=== PATIENT | male | born 1975 | race Caucasian/White ===

== ENCOUNTER → 2019-05-14 08:47 | Outpatient (BNVA) | payer MEDICARE, MEDICAID, SELFPAY | PROVIDERS: Family Provider Physician Assistant Medical; PCP Physician Assistant Medical; Visit Provider Nurse Practitioner | DX: M51.36 Other intervertebral disc degeneration, lumbar region (principal); F17.210 Nicotine dependence, cigarettes, uncomplicated; Z79.891 Long term (current) use of opiate analgesic | CPT/HCPCS: 99213; 99214 ==

== ENCOUNTER → 2019-06-11 09:23 | Outpatient (BNVA) | payer MEDICARE, MEDICAID, SELFPAY | PROVIDERS: Family Provider Physician Assistant Medical; PCP Physician Assistant Medical; Visit Provider Anesthesiology | DX: M51.36 Other intervertebral disc degeneration, lumbar region (principal); F17.210 Nicotine dependence, cigarettes, uncomplicated; Z79.891 Long term (current) use of opiate analgesic; Z71.6 Tobacco abuse counseling | CPT/HCPCS: 99214 ==

== ENCOUNTER → 2019-10-02 09:01 | Outpatient (BNVA) | payer MEDICARE, MEDICAID, SELFPAY | PROVIDERS: Family Provider Physician Assistant Medical; PCP Physician Assistant Medical; Visit Provider Anesthesiology | DX: M54.42 Lumbago with sciatica, left side (principal); M51.36 Other intervertebral disc degeneration, lumbar region; F17.210 Nicotine dependence, cigarettes, uncomplicated; Z79.891 Long term (current) use of opiate analgesic; Z71.6 Tobacco abuse counseling | CPT/HCPCS: 99214 ==

== ENCOUNTER → 2019-12-02 09:24 | Outpatient (BNVA) | payer MEDICARE, MEDICAID, SELFPAY | PROVIDERS: Family Provider Physician Assistant Medical; PCP Physician Assistant Medical; Visit Provider Anesthesiology | DX: M54.42 Lumbago with sciatica, left side (principal); M51.36 Other intervertebral disc degeneration, lumbar region; M54.9 Dorsalgia, unspecified; F17.210 Nicotine dependence, cigarettes, uncomplicated; Z79.891 Long term (current) use of opiate analgesic; Z71.6 Tobacco abuse counseling | CPT/HCPCS: 99214 ==

== ENCOUNTER → 2020-02-03 08:58 | Outpatient (BNVA) | payer MEDICARE, MEDICAID, SELFPAY | PROVIDERS: Family Provider Physician Assistant Medical; PCP Physician Assistant Medical; Visit Provider Anesthesiology | DX: M51.36 Other intervertebral disc degeneration, lumbar region (principal); M54.9 Dorsalgia, unspecified; F17.210 Nicotine dependence, cigarettes, uncomplicated; Z79.891 Long term (current) use of opiate analgesic; Z71.6 Tobacco abuse counseling | CPT/HCPCS: 99214 ==

== ENCOUNTER → 2020-03-30 09:15 | Outpatient (BNVA) | payer MEDICARE, MEDICAID, SELFPAY | PROVIDERS: Family Provider Physician Assistant Medical; PCP Physician Assistant Medical; Visit Provider Nurse Practitioner | DX: M51.36 Other intervertebral disc degeneration, lumbar region (principal); M54.9 Dorsalgia, unspecified; F17.210 Nicotine dependence, cigarettes, uncomplicated; Z79.891 Long term (current) use of opiate analgesic; Z71.6 Tobacco abuse counseling | CPT/HCPCS: 99213; 99214 ==

== ENCOUNTER → 2020-04-27 08:47 | Outpatient (BNVA) | payer MEDICARE, MEDICAID, SELFPAY | PROVIDERS: Family Provider Physician Assistant Medical; PCP Physician Assistant Medical; Visit Provider Anesthesiology | DX: M51.36 Other intervertebral disc degeneration, lumbar region (principal); M54.42 Lumbago with sciatica, left side; M54.9 Dorsalgia, unspecified; F17.210 Nicotine dependence, cigarettes, uncomplicated; Z79.899 Other long term (current) drug therapy; Z79.891 Long term (current) use of opiate analgesic | CPT/HCPCS: 99213 ==

== ENCOUNTER → 2020-06-22 09:35 | Outpatient (BNVA) | payer MEDICARE, MEDICAID, SELFPAY | PROVIDERS: Family Provider Physician Assistant Medical; PCP Physician Assistant Medical; Visit Provider Anesthesiology | DX: G89.29 Other chronic pain (principal); M51.36 Other intervertebral disc degeneration, lumbar region; M25.511 Pain in right shoulder; M25.512 Pain in left shoulder; M54.9 Dorsalgia, unspecified; F17.210 Nicotine dependence, cigarettes, uncomplicated; Z79.899 Other long term (current) drug therapy; Z79.891 Long term (current) use of opiate analgesic | CPT/HCPCS: 99214 ==

== ENCOUNTER → 2020-08-17 10:03 | Outpatient (BNVA) | payer MEDICARE, MEDICAID, SELFPAY | PROVIDERS: Family Provider Physician Assistant Medical; PCP Physician Assistant Medical; Visit Provider Anesthesiology | DX: G89.29 Other chronic pain (principal); M51.36 Other intervertebral disc degeneration, lumbar region; M54.9 Dorsalgia, unspecified; M25.511 Pain in right shoulder; M25.512 Pain in left shoulder; F17.210 Nicotine dependence, cigarettes, uncomplicated; Z79.899 Other long term (current) drug therapy; Z79.891 Long term (current) use of opiate analgesic | CPT/HCPCS: 99214 ==

== ENCOUNTER → 2020-10-08 08:53 | Outpatient (BNVA) | payer MEDICARE, MEDICAID, SELFPAY | PROVIDERS: Family Provider Physician Assistant Medical; PCP Physician Assistant Medical; Visit Provider Anesthesiology | DX: G89.29 Other chronic pain (principal); M51.36 Other intervertebral disc degeneration, lumbar region; M54.42 Lumbago with sciatica, left side; M54.9 Dorsalgia, unspecified; M25.511 Pain in right shoulder; M25.512 Pain in left shoulder; F17.210 Nicotine dependence, cigarettes, uncomplicated; Z79.899 Other long term (current) drug therapy; Z79.891 Long term (current) use of opiate analgesic | CPT/HCPCS: 99214 ==

== ENCOUNTER → 2020-12-10 08:18 | Outpatient (BNVA) | payer MEDICARE, MEDICAID, SELFPAY | PROVIDERS: Family Provider Physician Assistant Medical; PCP Physician Assistant Medical; Visit Provider Anesthesiology | DX: G89.29 Other chronic pain (principal); M51.36 Other intervertebral disc degeneration, lumbar region; M25.511 Pain in right shoulder; M25.512 Pain in left shoulder; F17.210 Nicotine dependence, cigarettes, uncomplicated; Z79.891 Long term (current) use of opiate analgesic | CPT/HCPCS: 99214 ==

== ENCOUNTER → 2021-02-15 08:09 | Outpatient (BNVA) | payer MEDICARE, MEDICAID, SELFPAY | PROVIDERS: Family Provider Physician Assistant Medical; PCP Physician Assistant Medical; Visit Provider Anesthesiology | DX: G89.29 Other chronic pain (principal); M51.36 Other intervertebral disc degeneration, lumbar region; M25.511 Pain in right shoulder; M25.552 Pain in left hip; F17.210 Nicotine dependence, cigarettes, uncomplicated; Z79.899 Other long term (current) drug therapy; Z79.891 Long term (current) use of opiate analgesic; Z71.6 Tobacco abuse counseling | CPT/HCPCS: 99214 ==

== ENCOUNTER → 2021-04-19 08:39 | Outpatient (BNVA) | payer MEDICARE, MEDICAID, SELFPAY | PROVIDERS: Family Provider Physician Assistant Medical; PCP Physician Assistant Medical; Visit Provider Anesthesiology | DX: G89.29 Other chronic pain (principal); M51.36 Other intervertebral disc degeneration, lumbar region; M25.511 Pain in right shoulder; M25.512 Pain in left shoulder; F17.200 Nicotine dependence, unspecified, uncomplicated; Z79.899 Other long term (current) drug therapy; Z79.891 Long term (current) use of opiate analgesic; Z79.1 Long term (current) use of non-steroidal anti-inflammatories (NSAID) | CPT/HCPCS: 99214 ==

== ENCOUNTER → 2021-07-12 13:11 | Outpatient (BNVA) | payer MEDICARE, MEDICAID, SELFPAY | PROVIDERS: Family Provider Physician Assistant Medical; PCP Physician Assistant Medical; Referring Provider Nurse Practitioner Family; Visit Provider Internal Medicine | DX: E78.5 Hyperlipidemia, unspecified (principal); E21.0 Primary hyperparathyroidism; E04.2 Nontoxic multinodular goiter; I25.10 Atherosclerotic heart disease of native coronary artery without angina pectoris; F17.201 Nicotine dependence, unspecified, in remission | CPT/HCPCS: 99204 ==

== ENCOUNTER 2021-07-19 11:48 | Outpatient (CLI) | payer MEDICARE, MEDICAID, SELFPAY ==
[2021-07-19 13:26] LABS: 25 Hydroxy Vitamin D 22 ng/mL (30-100)
[2021-07-19 13:37] LABS: Calcium 11.9 mg/dL (8.5-10.5)
[2021-07-19 13:43] LABS: Parathyroid Hormone 119.2 pg/mL (15-65)
== END 2021-07-19 11:49 | disposition home or self-care (01) ==
LOC: LAB 11:57
PROVIDERS: Family Provider Physician Assistant Medical; PCP Physician Assistant Medical; Visit Provider Internal Medicine
DX: E21.0 Primary hyperparathyroidism (principal); E78.5 Hyperlipidemia, unspecified
CPT/HCPCS: 82306; 82310; 83970

== ENCOUNTER 2021-07-19 12:36 | Outpatient (CLI) | payer MEDICARE, MEDICAID, SELFPAY ==
[2021-07-19 12:48] LABS: Basophils # 0.1 10^3/uL (0.0-0.1); Basophils % 0.4 %; Eosinophils # 0.2 10^3/uL (0.0-0.8); Eosinophils % 1.2 %; Hematocrit 52.3 % (42.0-52.0); Hemoglobin 17.8 g/dL (11.7-16.6); Lymphocytes # 4.6 10^3/uL (0.8-4.8); Lymphocytes % 27.9 %; Mean Corpuscular Hemoglobin 32.5 pg (28.0-34.0); Mean Corpuscular Volume 95.4 fl (80-94); Mean Platelet Volume 9.5 fL (7.4-10.4); Monocytes # 0.6 10^3/uL (0.2-0.9); Monocytes % 3.9 %; Neutrophils # 10.79 10^3/uL (1.8-7.7); Neutrophils % 66.3 %; Nucleated Red Blood Cells % 0 %; Platelet Count 270 10^3/cmm (130-400); Red Blood Count 5.48 10^6/uL (4.1-5.3); Red Cell Distribution Width 12.5 % (12.1-15.1); White Blood Count 16.3 10^3/uL (4.0-10.0)
--- NOTE | 2021-07-22 08:52 | ONC CON_ITS ---
Dr. Renner New Patient Note Patient: Kenyetta Green Unit #: [id number]: [id number] Dicatated By: Amanda Renner M.D.Date of Visit: Jul 19, 2021 Onc MED New Patient/Consult Referring Physician: Samy Bedolla N.P. History of Present Illness: Mr. Kenyetta Green, is a 45-year-old gentleman with history of leukocytosis, initially noted in 2018, as per patient his white blood count was mildly elevated so observation was recommended until he saw endocrinology for thyroid problem and his lab work-up done on June 16, 2021 showed persistent leukocytosis with white blood count 13.1, normal being 3.8-10.8 thousand /UL, hemoglobin 17.5 hematocrit 53.0 platelets 286,000 with absolute neutrophil count 8358. Patient denies any night sweats, denies any recurrent fever, denies any weight loss, patient is a chronic smoker, smoked about 2 packs a day for the last 23-years. As per patient about 5 years ago he had a cortisone injection to his right shoulder., Denies any nosebleed, denies any jaundice, denies any headaches blurred vision double vision. His past medical history significant for history of brain tumor at age 4 status post resection followed by radiation therapy at [facility] Patient denies any dysuria or hematuria, denies any sinus problem, denies any skin infections, denies any steroid intake, denies any male hormone supplement, denies any sore throat or sinus related symptoms. Past Medical History: Mr. Green's medical history consists of arthritis, chronic back pain, chronic ischemic heart disease, chronic shoulder pain, depression, hyperlipidemia, lumbago, medulloblastoma, obstructive sleep apnea, restless leg syndrome, and siezures. Past Surgical History: Mr. Green's surgical/procedural history consists of cholecystectomy. Medications: Cyclobenzaprine HCl 1 Tablet (of 10 mg) Oral t.i.d. PRN, HYDROcodone-Acetaminophen 1 Tablet (of 10-325 mg) Oral q 4 hours PRN, Phenytoin Sodium Extended 1 Capsule (of 100 mg) Oral four times a day, rOPINIRole HCl 1 Tablet (of 5 mg) Oral at bedtime, Sertraline HCl 1 Tablet (of 50 mg) Oral at bedtime Allergies: Cholestyramine and traMADol HCl. Social History: Mr. Green is . He is a heavy tobacco smoker who smokes 2.0 packs/day. He has no history of drinking. He has indicated exposure to the following products: cigarettes. Family History: The family history is unremarkable. Review Of Symptoms: Review of Systems is not available for this patient. Vital Signs: Performed on Jul 19, 2021 13:23: 0, 0, 24.98, 1.63 sq.m, 62 in, 98 %, 79 /min, 19 /min, 124/74 mm(hg), 96.9 F (LOW), and 136.6 lbs (HIGH). Performance Status: 0 - Fully active, able to carry on all predisease activities without restrictions. (ECOG) Physical Examination: ENMT - . No mouth sores, no thrush, no jaundice, no cervical lymphadenopathy, Respiratory - Lungs are clear to auscultation, Cardiovascular - Regular rate and rhythm of heart, Abdomen - Soft, bowel sounds present, Extremities - No visible edema. Lab/Imaging: Most recent lab results are not available for this patient. Impression: Leukocytosis within left shift etiology could be multifactorial, most likely due to heavy, chronic smoking or smoking related complication like bronchitis. Or chronic inflammation, history of chronic arthritis involving bilateral shoulder, status post cortisone injection in the right shoulder about 5 years ago or myeloproliferative disorder but less likely Chronic smoking about 2 packs/day for the last 23 years As per patient history of brain tumor at age 4, status post resection followed by radiation therapy History of chronic arthritis involving bilateral shoulder Plan: Discussed with patient regarding his labs white blood count 16.3 hemoglobin 17.8 hematocrit 52.3 platelets 270,000 absolute neutrophil count 10,790 Clinically, patient denies any new signs symptoms suggestive of acute infection but related to chronic inflammation like bilateral shoulder pain/discomfort and admits smoking 2 packs a day for the last 23 years or more., Etiology of his leukocytosis could be multifactorial but most likely due to chronic heavy smoking or smoking related complication like chronic bronchitis or sinusitis other possibility could be due to chronic inflammation like bilateral shoulder arthritis as per patient about 5 years ago he received cortisone injection to the right shoulder. Underlying myeloproliferative disorder cannot be ruled out but less likely. At this point, patient was advised to hold smoking at least for 2 weeks and then repeat his CBC, if it shows resolution of mild leukocytosis, then will recommend stopping smoking permanently on the other hand if he has persistent leukocytosis, will consider whole blood flow cytometry to rule out myeloproliferative disorder Mild polycythemia probably reactive to chronic/heavy smoking or smoking-related chronic lung changes, other possibility could be underlying myeloproliferative disorder like polycythemia vera but less likely, patient has no family history of polycythemia vera., Patient was advised to quit smoking at least for next few weeks, will monitor CBC and hopefully with stopping smoking his hemoglobin/hematocrit may improve, if not, may consider JAK2 mutation., Patient was advised to maintain hydration Patient return to clinic in 2 weeks with CBC. Signed By: Amanda Renner M.D. <<Signature on File>>
== END 2021-07-19 12:37 | disposition home or self-care (01) ==
LOC: ONCMED 12:43
PROVIDERS: Visit Provider Internal Medicine Hematology & Oncology
DX: D72.829 Elevated white blood cell count, unspecified (principal); D75.1 Secondary polycythemia; F17.210 Nicotine dependence, cigarettes, uncomplicated
CPT/HCPCS: 85025; 99204

== ENCOUNTER 2021-08-03 09:55 | Outpatient (CLI) | payer MEDICARE, MEDICAID, SELFPAY ==
[2021-08-03 10:38] LABS: Basophils # 0.1 10^3/uL (0.0-0.1); Basophils % 0.5 %; Eosinophils # 0.2 10^3/uL (0.0-0.8); Eosinophils % 1.5 %; Hematocrit 49.1 % (42.0-52.0); Hemoglobin 16.2 g/dL (11.7-16.6); Lymphocytes # 3.4 10^3/uL (0.8-4.8); Lymphocytes % 28.5 %; Mean Corpuscular Hemoglobin 31.6 pg (28.0-34.0); Mean Corpuscular Volume 95.7 fl (80-94); Mean Platelet Volume 9.3 fL (7.4-10.4); Monocytes # 0.7 10^3/uL (0.2-0.9); Monocytes % 5.4 %; Neutrophils % 63.7 %; Nucleated Red Blood Cells % 0 %; Platelet Count 297 10^3/cmm (130-400); Red Blood Count 5.13 10^6/uL (4.1-5.3); Red Cell Distribution Width 12.6 % (12.1-15.1)
--- NOTE | 2021-08-03 11:37 | ONC FU_ITS ---
Dr. Renner follow up note Patient: Kenyetta Green Unit #: [id number]: [id number] Dicatated By: Amanda Renner M.D.Date of Visit:Aug 03, 2021 Onc Med Follow-up/Prog Note History of Present Illness: Mr. Kenyetta Green, is a 45-year-old gentleman with history of leukocytosis, initially noted in 2018, as per patient his white blood count was mildly elevated so observation was recommended until he saw endocrinology for thyroid problem and his lab work-up done on June 16, 2021 showed persistent leukocytosis with white blood count 13.1, normal being 3.8-10.8 thousand /UL, hemoglobin 17.5 hematocrit 53.0 platelets 286,000 with absolute neutrophil count 8358. Patient denies any night sweats, denies any recurrent fever, denies any weight loss, patient is a chronic smoker, smoked about 2 packs a day for the last 23-years. As per patient about 5 years ago he had a cortisone injection to his right shoulder., Denies any nosebleed, denies any jaundice, denies any headaches blurred vision double vision. His past medical history significant for history of brain tumor at age 4 status post resection followed by radiation therapy at [facility] Came for follow-up, denies any specific complaints, no fever chills, no nausea or vomiting, no diarrhea constipation, no melena hematochezia, no hemoptysis hematemesis, patient quit smoking about 2 weeks ago, and said he is not having problem, no withdrawals. Medications: Cyclobenzaprine HCl 1 Tablet (of 10 mg) Oral t.i.d. PRN, HYDROcodone-Acetaminophen 1 Tablet (of 10-325 mg) Oral q 4 hours PRN, Phenytoin Sodium Extended 1 Capsule (of 100 mg) Oral four times a day, rOPINIRole HCl 1 Tablet (of 5 mg) Oral at bedtime, Sertraline HCl 1 Tablet (of 50 mg) Oral at bedtime Allergies: Cholestyramine and traMADol HCl. Review of Systems: Review of Systems is not available for this patient. Vital Signs: Vitals are not available for this patient. Performance Status: 0 - Fully active, able to carry on all predisease activities without restrictions. (ECOG) Physical Examination: ENMT - No mouth sores, no thrush, no jaundice, no cervical lymphadenopathy, Respiratory - Mild wheezing otherwise clear, Cardiovascular - Regular rate and rhythm of heart, Abdomen - Soft, bowel sounds present, Extremities - No visible edema. Lab/Imaging: Most recent lab results are not available for this patient. Impression: Leukocytosis within left shift etiology could be multifactorial, most likely due to heavy, chronic smoking or smoking related complication like bronchitis. Or chronic inflammation, history of chronic arthritis involving bilateral shoulder, status post cortisone injection in the right shoulder about 5 years ago or myeloproliferative disorder but less likely Chronic smoking about 2 packs/day for the last 23 years As per patient history of brain tumor at age 4, status post resection followed by radiation therapy History of chronic arthritis involving bilateral shoulder Plan: Discussed with patient regarding his labs white blood count 12,000 compared to 16.3 thousand previously, hemoglobin 16.2 hematocrit 49.1 compared to 52.3 previously platelets 297,000 Clinically, patient doing well with no new signs symptom suggestive of infection his follow-up CBC showed improvement in leukocytosis as well as polycythemia since he quit smoking about 2 weeks ago. At this point, we will continue to monitor, patient was advised not to smoke, and was offered any assistance he may need and he will return to clinic in 1 month with CBC Signed By: Amanda Renner M.D. <<Signature on File>>
== END 2021-08-03 09:56 | disposition home or self-care (01) ==
PROVIDERS: Visit Provider Internal Medicine Hematology & Oncology
DX: D72.829 Elevated white blood cell count, unspecified (principal); M19.011 Primary osteoarthritis, right shoulder; M19.012 Primary osteoarthritis, left shoulder; F17.210 Nicotine dependence, cigarettes, uncomplicated; Z86.011 Personal history of benign neoplasm of the brain; Z92.3 Personal history of irradiation
CPT/HCPCS: 36415; 85025; 99214

== ENCOUNTER → 2021-10-12 14:16 | Outpatient (BNVA) | payer MEDICARE, MEDICAID, SELFPAY | PROVIDERS: Visit Provider Internal Medicine | DX: E04.2 Nontoxic multinodular goiter (principal); E21.0 Primary hyperparathyroidism; E78.5 Hyperlipidemia, unspecified; I25.10 Atherosclerotic heart disease of native coronary artery without angina pectoris; F17.210 Nicotine dependence, cigarettes, uncomplicated | CPT/HCPCS: 99214 ==

== ENCOUNTER 2021-11-02 06:56 | Outpatient (CLI) | payer MEDICARE, MEDICAID, SELFPAY ==
--- NOTE | 2021-11-02 08:45 | US_ITS ---
WS: [id number] ULTRASOUND-GUIDED THYROID NODULE FNA HISTORY: Nodule 2.3 cm, isthmus nodule. Procedure, risks, and complications were explained to the patient. Consent has been obtained. Comparison: Prior imaging study from 03/07/2022 reviewed. Hypoechoic mass noted within the isthmus is targeted for biopsy. There are additional nodules through out the gland which are very small and not targeted for biopsy. The skin is cleansed with ChloraPrep and anesthetized with 1% buffered lidocaine. FNA performed with 25 gauge needles. nuclear medicine technologist is present to fix slides. US/US biopsy/FNA thyroid [id number] IMPRESSION: Uncomplicated FNA of the isthmus thyroid nodule. Final pathology results peg ahuja
== END 2021-11-02 06:57 | disposition home or self-care (01) ==
PROVIDERS: Visit Provider Internal Medicine
DX: E04.2 Nontoxic multinodular goiter (principal); E04.9 Nontoxic goiter, unspecified
CPT/HCPCS: 10005; 88173; 88305

== ENCOUNTER → 2021-12-13 08:18 | Outpatient (BNVA) | payer MEDICARE, MEDICAID, SELFPAY | PROVIDERS: PCP Nurse Practitioner Family; Visit Provider Internal Medicine | DX: E21.0 Primary hyperparathyroidism (principal); E04.2 Nontoxic multinodular goiter; E78.5 Hyperlipidemia, unspecified; I25.10 Atherosclerotic heart disease of native coronary artery without angina pectoris | CPT/HCPCS: 99214 ==

== ENCOUNTER 2021-12-26 07:14 | Outpatient (CLI) | payer MEDICARE, MEDICAID, SELFPAY ==
--- NOTE | 2021-12-26 | MR_ITS ---
WS: [id number] MRI LUMBAR SPINE WITH CONTRAST TECHNIQUE: Sagittal T1, T2 and STIR imaging. Axial T1 and T2 imaging. Post gadolinium imaging was obt ained. CLINICAL INFORMATION: LUMBOSACRAL SPONDYLOSIS W/RADICULOPATHY COMPARISON: None. FINDINGS: Mild lumbar curve. No acute compression. No high-grade central canal stenosis. L1-L2: Normal. L2-L3: Normal. L3-L4: Mild annular bulging. Mild facet arthropathy. Spinal canal and foramen are patent. L4-L5: Mild annular bulging with slight effacement of ventral thecal sac. Slight impingement on the t raversing LEFT L5 nerve root. Small LEFT foraminal protrusion with mild LEFT foraminal narrowing. Sli ght contact the exiting LEFT L4 nerve root. Mild facet arthropathy. L5-S1: No significant disc bulging. Mild facet arthropathy. Spinal canal and foramen are patent. Visualized pelvic bony structures: Normal. Paravertebral soft tissues: Normal. MR/MR lumbar spine wo con* [id number] IMPRESSION: 1. Mild lumbar curve. No acute compression. No high-grade central canal stenos is. 2. Mild annular bulging L4-L5 with slight narrowing of the LEFT subarticular r ecess and encroachment traversing LEFT L5 nerve root. 3. Small LEFT foraminal protrusion L4-L5 slightly contacts the exiting LEFT L4 nerve root. 4. Spinal canal and foramen are otherwise patent. 5. Mild facet arthropathy L3-L5.
--- NOTE | 2021-12-26 07:19 | MR_ITS ---
WS: [id number] MRI LUMBAR SPINE WITH CONTRAST TECHNIQUE: Sagittal T1, T2 and STIR imaging. Axial T1 and T2 imaging. Post gadolinium imaging was obt ained. CLINICAL INFORMATION: LUMBOSACRAL SPONDYLOSIS W/RADICULOPATHY COMPARISON: None. FINDINGS: Mild lumbar curve. No acute compression. No high-grade central canal stenosis. L1-L2: Normal. L2-L3: Normal. L3-L4: Mild annular bulging. Mild facet arthropathy. Spinal canal and foramen are patent. L4-L5: Mild annular bulging with slight effacement of ventral thecal sac. Slight impingement on the t raversing LEFT L5 nerve root. Small LEFT foraminal protrusion with mild LEFT foraminal narrowing. Sli ght contact the exiting LEFT L4 nerve root. Mild facet arthropathy. L5-S1: No significant disc bulging. Mild facet arthropathy. Spinal canal and foramen are patent. Visualized pelvic bony structures: Normal. Paravertebral soft tissues: Normal.
== END 2021-12-26 07:15 | disposition home or self-care (01) ==
LOC: RAD 07:14
PROVIDERS: PCP Nurse Practitioner Family; Visit Provider General Practice
DX: M47.27 Other spondylosis with radiculopathy, lumbosacral region (principal); M51.26 Other intervertebral disc displacement, lumbar region
CPT/HCPCS: 72148; 72158

== ENCOUNTER 2022-01-12 08:12 | Outpatient (CLI) | payer MEDICARE, MEDICAID, SELFPAY ==
--- NOTE | 2022-01-12 08:30 | NM_ITS ---
WS: [id number] INDICATION: Hyperparathyroidism. TECHNIQUE: Nuclear medicine parathyroid study. 18.3 mCi technetium 99m was administered. Initial and delayed anterior planar imaging and oblique imaging. Suprasternal notch and chin markers. COMPARISON: July 05, 2021 FINDINGS: Normal salivary gland uptake bilaterally. Normal rapid thyroid gland uptake normal washout. Nodular increased activity LEFT lower lobe thyroid/isthmus junction corresponds to the ultrasound fi ndings and previously sampled Isthmus nodule. Multinodular thyroid seen on the prior ultrasound. No areas of suspicious retained activity on the delayed imaging to indicate parathyroid adenoma. NM/NM parathyroid [id number] IMPRESSION: No evidence of parathyroid adenoma.
== END 2022-01-12 08:13 | disposition home or self-care (01) ==
LOC: RAD 08:13
PROVIDERS: PCP Nurse Practitioner Family; Visit Provider Internal Medicine
DX: E21.0 Primary hyperparathyroidism (principal); E78.5 Hyperlipidemia, unspecified
CPT/HCPCS: 78070; A9500

== ENCOUNTER 2022-03-16 06:00 | Outpatient (CLI) | payer MEDICARE, MEDICAID, SELFPAY | END 2022-03-16 06:01 | disposition home or self-care (01) | LOC: LAB 03-23 15:19 | PROVIDERS: PCP Nurse Practitioner Family; Visit Provider Internal Medicine | DX: E21.0 Primary hyperparathyroidism (principal); E78.5 Hyperlipidemia, unspecified; E04.2 Nontoxic multinodular goiter; I25.10 Atherosclerotic heart disease of native coronary artery without angina pectoris; Z79.1 Long term (current) use of non-steroidal anti-inflammatories (NSAID); F17.210 Nicotine dependence, cigarettes, uncomplicated | CPT/HCPCS: 36415; 80053; 80061; 82310; 83970; 99214 ==

== ENCOUNTER → 2022-08-21 08:02 | Outpatient (BNVA) | payer MEDICARE, MEDICAID, SELFPAY | PROVIDERS: PCP Nurse Practitioner Family; Visit Provider Internal Medicine | DX: E21.0 Primary hyperparathyroidism (principal); E78.5 Hyperlipidemia, unspecified; E04.2 Nontoxic multinodular goiter; I25.10 Atherosclerotic heart disease of native coronary artery without angina pectoris | CPT/HCPCS: 36415; 80061; 82310; 83970; 99214 ==

== ENCOUNTER 2022-11-21 07:30 | Outpatient (CLI) | payer MEDICARE, MEDICAID, SELFPAY ==
[2022-11-21 08:33] LABS: Calcium 11.3 mg/dL (8.5-10.5); Chol HDL Ratio 4.61 mg/dL (1.0-5.00); Cholesterol 152 mg/dL (0-200); HDL Cholesterol 33 mg/dL (60-100); LDL Cholesterol Calculated 83 mg/dL (50-129); LDL HDL Ratio 2.52 RATIO (0.00-3.22); Triglycerides 178 mg/dL (0-150)
[2022-11-21 08:38] LABS: Parathyroid Hormone 95.9 pg/mL (15-65)
== END 2022-11-21 07:31 | disposition home or self-care (01) ==
PROVIDERS: PCP Nurse Practitioner Family; Visit Provider Internal Medicine
DX: E21.0 Primary hyperparathyroidism (principal); E04.2 Nontoxic multinodular goiter; E78.5 Hyperlipidemia, unspecified; I25.10 Atherosclerotic heart disease of native coronary artery without angina pectoris
CPT/HCPCS: 36415; 80061; 82310; 83970

== ENCOUNTER → 2022-11-23 09:02 | Outpatient (BNVA) | payer MEDICARE, MEDICAID, SELFPAY | PROVIDERS: PCP Nurse Practitioner Family; Visit Provider Internal Medicine | DX: E21.0 Primary hyperparathyroidism (principal); E78.5 Hyperlipidemia, unspecified; E04.2 Nontoxic multinodular goiter; I25.10 Atherosclerotic heart disease of native coronary artery without angina pectoris | CPT/HCPCS: 99214 ==

== ENCOUNTER → 2023-05-29 09:05 | Outpatient (BNVA) | payer MEDICARE, MEDICAID, SELFPAY | PROVIDERS: PCP Nurse Practitioner Family; Visit Provider Internal Medicine | DX: E21.0 Primary hyperparathyroidism (principal); E78.5 Hyperlipidemia, unspecified; E04.2 Nontoxic multinodular goiter; Z79.891 Long term (current) use of opiate analgesic; Z79.899 Other long term (current) drug therapy; I25.10 Atherosclerotic heart disease of native coronary artery without angina pectoris | CPT/HCPCS: 36415; 80053; 82306; 82310; 83970; 99214 ==

== ENCOUNTER 2023-07-09 08:03 | Outpatient (CLI) | payer MEDICARE, MEDICAID, SELFPAY ==
--- NOTE | 2023-07-09 08:30 | USR_ITS ---
PROCEDURE INFORMATION: Exam: US Soft Tissue Head and Neck, Thyroid Exam date and time: 07/09/2023 8:13 AM Age: 47 years old Clinical indication: Abnormal findings; Abnormal thyroid scan; Additional info: Multiple thyroid nodules, include tirads TECHNIQUE: Imaging protocol: Real-time ultrasound scan of the neck with image documentation. Exam focused on the thyroid. COMPARISON: US biopsy/FNA thyroid [id number] 11/02/2021 8:57 AM FINDINGS: Right thyroid lobe: Heterogenous thyroid echogenicity. 3 cm x 1.6 cm x 1.1 cm. Left thyroid lobe: Heterogenous Measures 4 cm x 1.4 cm x 1.1 cm Isthmus: No nodules. Heterogenous 5 mm. Thyroid nodules: Right lobe Mid: 6 mm x 6 mm x 13 mm Solid, hyperechoic, smooth borders, oval, no calcifications. TR 3 mild suspicious Left thyroid lobe Inferior 1.5 cm x 1.3 cm x 1.4 cm. Solid, hypoechoic, oval, smooth borders, no calcifications. TR 4 moderate suspicious This finding requires FNA due to size of 1.5 cm Thyroid isthmus: Midline, 1.8 cm x 1 cm x 2 cm Solid, hyperechoic, oval, smooth borders, no calcifications. TR 3 mild suspicious The left neck soft tissue shows benign lymph node 6 mm x 4 mm x 22 mm. US/US thyroid [id number] IMPRESSION: 1. Left thyroid lobe moderately suspicious nodule requires FNA 2. Mildly suspicious nodules right thyroid lobe and isthmus. 3. Benign lymph node is seen in the left neck soft tissues.
== END 2023-07-09 08:04 | disposition home or self-care (01) ==
LOC: RAD 08:04
PROVIDERS: PCP Nurse Practitioner Family; Visit Provider Internal Medicine
DX: E21.0 Primary hyperparathyroidism (principal); E04.2 Nontoxic multinodular goiter
CPT/HCPCS: 76536

== ENCOUNTER 2023-07-27 11:14 | Outpatient (CLI) | payer MEDICARE, MEDICAID, SELFPAY ==
--- NOTE | 2023-07-27 12:45 | US_ITS ---
WS: [id number] ULTRASOUND THYROID FNA CLINICAL INFORMATION: E04.2 - Nontoxic multinodular goiter TECHNIQUE: Ultrasound-guided FNA FINDINGS: The procedure including risks, benefits, and complications were discussed with the patient who agreed to proceed. Timeout was performed. Using sterile technique patient was prepped and draped in usual sterile fashion. After 1% lidocaine, using ultrasound guidance, a 25-gauge needle was advanc ed into the LEFT lower lobe thyroid nodule. 5 passes were made with active aspiration. Pathology was present for slide preparation. No immediate complications. Patient remained in the ultrasound suite 10 minutes postprocedure with intermittent ultrasound to ens ure no hematoma. No hematoma 10 minutes postprocedure. IMPRESSION: Uncomplicated ultrasound-guided thyroid FNA of the LEFT inferior thyroid nodule Cytology is pending.
== END 2023-07-27 11:15 | disposition home or self-care (01) ==
LOC: RAD 11:14
PROVIDERS: PCP Nurse Practitioner Family; Visit Provider Internal Medicine
DX: E04.2 Nontoxic multinodular goiter (principal); E21.0 Primary hyperparathyroidism
CPT/HCPCS: 10005; 88173

== ENCOUNTER → 2023-07-31 07:23 | Outpatient (BNVA) | payer MEDICARE, MEDICAID, SELFPAY | PROVIDERS: PCP Nurse Practitioner Family; Visit Provider Internal Medicine | DX: E21.0 Primary hyperparathyroidism (principal); E04.2 Nontoxic multinodular goiter; E78.5 Hyperlipidemia, unspecified; I25.10 Atherosclerotic heart disease of native coronary artery without angina pectoris | CPT/HCPCS: 99214 ==

== ENCOUNTER 2023-09-06 08:27 | Outpatient (CLI) | payer MEDICARE, MEDICAID, SELFPAY ==
[2023-09-06 09:30] LABS: Calcium 10.7 mg/dL (8.5-10.5)
[2023-09-06 09:34] LABS: Parathyroid Hormone 133.5 pg/mL (15-65)
[2023-09-06 09:42] LABS: 25 Hydroxy Vitamin D 15 ng/mL (30-100)
== END 2023-09-06 08:28 | disposition home or self-care (01) ==
PROVIDERS: PCP Nurse Practitioner Family; Visit Provider Internal Medicine
DX: Z79.891 Long term (current) use of opiate analgesic (principal); E21.0 Primary hyperparathyroidism; E04.2 Nontoxic multinodular goiter
CPT/HCPCS: 36415; 82306; 82310; 83970

== ENCOUNTER 2024-10-13 14:04 | Oncology outpatient (recurring) (ONCR) | payer MEDICARE, MEDICAID, SELFPAY | END 2024-10-13 23:59 | disposition home or self-care (01) | PROVIDERS: PCP Nurse Practitioner Family; Visit Provider Internal Medicine Medical Oncology | DX: D75.1 Secondary polycythemia (principal); D72.829 Elevated white blood cell count, unspecified; R03.0 Elevated blood-pressure reading, without diagnosis of hypertension; Z72.0 Tobacco use; G47.30 Sleep apnea, unspecified | CPT/HCPCS: 99204 ==

== ENCOUNTER 2025-01-12 11:48 | Oncology outpatient (recurring) (ONCR) | payer MEDICARE, MEDICAID, SELFPAY ==
[2025-01-12 12:32] LABS: Hematocrit 50.6 % (37-53); Hemoglobin 16.60 g/dL (11.27-16.99); Mean Corpuscular HGB Conc 32.8 g/dL (30-55); Mean Corpuscular Hemoglobin 31.1 pg (27-33); Mean Corpuscular Volume 94.8 fl (82-101); Nucleated Red Blood Cells % 0 %; Platelet Count 317 10^3/cmm (157-399); Red Blood Count 5.34 10^6/uL (3.85-5.65); White Blood Count 12.57 10^3/uL (3.29-11.43)
== END 2025-01-13 23:59 | disposition home or self-care (01) ==
PROVIDERS: PCP Nurse Practitioner Family; Visit Provider Internal Medicine Medical Oncology
DX: D75.1 Secondary polycythemia (principal); R03.0 Elevated blood-pressure reading, without diagnosis of hypertension; F17.210 Nicotine dependence, cigarettes, uncomplicated; D72.829 Elevated white blood cell count, unspecified
CPT/HCPCS: 36415; 85025; 99213

== ENCOUNTER 2025-04-13 11:18 | Oncology outpatient (recurring) (ONCR) | payer MEDICARE, MEDICAID, SELFPAY ==
[2025-04-13 11:44] LABS: Hematocrit 55.1 % (37-53); Hemoglobin 18.70 g/dL (11.27-16.99); Mean Corpuscular HGB Conc 33.9 g/dL (30-55); Mean Corpuscular Hemoglobin 32.0 pg (27-33); Mean Corpuscular Volume 94.3 fl (82-101); Nucleated Red Blood Cells % 0 %; Platelet Count 287 10^3/cmm (157-399); Red Blood Count 5.84 10^6/uL (3.85-5.65); White Blood Count 16.80 10^3/uL (3.29-11.43)
[2025-04-13 12:02] LABS: Alanine Aminotransferase 19 U/L (0-41); Albumin Level 4.6 g/dL (3.5-5.2); Alkaline Phosphatase 161 U/L (40-130); Anion Gap 14.6 (5-19); Aspartate Amino Transferase 17 U/L (0-40); Blood Urea Nitrogen 11 mg/dL (6-20); Calcium 12.6 mg/dL (8.5-10.5); Carbon Dioxide 27 mmol/L (22-29); Chloride 102 mmol/L (98-107); Globulin 2.3 g/dL (1.3-4.6); Glucose 82 mg/dL (65-115); Osmolality Calculated 286 mOsm/kg (285-295); Potassium 4.6 mmol/L (3.5-5.1); Sodium 139 mmol/L (136-145); Total Protein 6.9 g/dL (6.6-8.7)
== END 2025-04-15 23:59 | disposition home or self-care (01) ==
PROVIDERS: Nurse Practitioner; PCP Nurse Practitioner Family; Visit Provider Internal Medicine Medical Oncology
DX: D75.1 Secondary polycythemia (principal); R03.0 Elevated blood-pressure reading, without diagnosis of hypertension; F17.210 Nicotine dependence, cigarettes, uncomplicated
CPT/HCPCS: 80053; 85025; 99213